=== PATIENT | female | born 1965 | race Two or more races ===

== ENCOUNTER 2021-08-06 05:16 | Day surgery (SDC) | payer OTHER ==
[~2021-08-06 05:16] MED LIST: CRESTOR10 MG PO; GABAPENTIN300 M2 PO; LOSARTAN-HCTZ1 EAC1 PO; NEURIN PO; TOPROL XL100 M1 PO; TOPROL XL50 M1 PO
== END 2021-08-06 12:00 | disposition home or self-care (01) ==
LOC: CIR.AMB 05:16
PROVIDERS: ATTEND Surgery Surgery of the Hand
DX: M65.841 Other synovitis and tenosynovitis, right hand (principal)